=== PATIENT | female | born 1960 | race Caucasian/White ===

== ENCOUNTER → 2023-12-28 08:26 | Outpatient (REF) | payer BC, SELFPAY ==
[2023-12-28 10:24] LABS: Creatine Phosphokinase 366 U/L (30-135)
[2023-12-28 10:54] LABS: TSH 1.21 uIU/ml (0.47-4.68)
[2023-12-28 11:10] LABS: Glycohemoglobin (HgbA1c) 5.6 % (4.0-5.6)
[2023-12-30 12:50] LABS: 24 Hour Urine Total Volume Random mL; Urine Collection Length Random hr; Urine Free Kappa Light Chains 0.75 mg/L (0.00-32.90); Urine Free Lambda Light Chains <0.74 mg/L (0.00-3.79)
[2023-12-31 10:58] LABS: Albumin 4.56 g/dL (3.75-5.01); Alpha 1 Globulin 0.24 g/dL (0.19-0.46); Alpha 2 Globulin 0.63 g/dL (0.48-1.05); Free Kappa Light Chains,Quant 10.22 mg/L (3.30-19.40); Free Lambda Light Chains,Quant 6.61 mg/L (5.71-26.30); IgA 125 mg/dL (68-408); IgG 931 mg/dL (768-1632); IgM 104 mg/dL (35-263); Immunofixation Electrophoresis IFE Done; Kappa/Lambda Fr Light Ratio 1.55 (0.26-1.65)
[2023-12-31 22:11] LABS: Myelin Assoc Glycoprotein Ab <1000 TU (0-999)
== END ==
LOC: REG 08:26
PROVIDERS: ATTENDING PHYSICIAN Psychiatry & Neurology Neuromuscular Medicine; FAMILY PHYSICIAN Physician Assistant Medical
DX: G62.89 Other specified polyneuropathies (principal)
CPT/HCPCS: 36415; 82550; 82784; 83036; 83516; 83521; 84155; 84156; 84165; 84443; 86041; 86334; 86335

== ENCOUNTER → 2024-02-24 08:28 | Outpatient (REF) | payer BC, SELFPAY ==
[2024-02-24 12:49] LABS: Vitamin B12 > 1000 pg/ml (239-931)
[2024-02-26 21:56] LABS: Methylmalonic Acid 0.13 umol/L (0.00-0.40)
== END ==
LOC: REG 08:28
PROVIDERS: ATTENDING PHYSICIAN Student in an Organized Health Care Education/Training Program; FAMILY PHYSICIAN Physician Assistant Medical
DX: G12.20 Motor neuron disease, unspecified (principal)
CPT/HCPCS: 36415; 82607; 83921

== ENCOUNTER 2024-03-03 14:35 | Emergency (ER) | payer BC, SELFPAY ==
[2024-03-03 14:40] VITALS: BP 118/83
[2024-03-03 15:14] VITALS: BP 132/73
[2024-03-03 15:34] LABS: % Basophils 0.4 % (0-2); % Eosinophils 4.4 % (0-6); % Immature Granulocytes 0.6 % (0-0.5); % Lymphocytes 43.5 % (20.5-51.1); % Monocytes 10.3 % (1.7-9.3); % Neutrophils 40.8 % (42.2-75.2); Absolute Eosinophils 0.2 10^3/uL (0-0.7); Absolute Lymphocytes 2.2 10^3/uL (1.2-3.4); Absolute Monocytes 0.5 10^3/uL (0.1-0.6); Hematocrit 36.8 % (37.0-47.0); Hemoglobin 12.7 g/dL (12.0-16.0); Mean Corp Hgb Conc. 34.5 g/dL (33.0-37.0); Mean Corpuscular Hgb 32.3 pg (27.0-31.0); Mean Corpuscular Volume 93.6 fL (81.0-99.0); Mean Platelet Volume 11.7 fL (7.4-10.4); Nucleated Red Blood Cells % 0 %; Platelet Count 181 10^3/uL (130-400); Red Blood Cell Count 3.93 10^6/uL (4.20-5.40); Red Cell Dist. Width 11.8 % (11.5-14.5)
[2024-03-03 15:42] LABS: INR 1.02; PT 13.2 Sec (11.4-14.6)
[2024-03-03 15:43] LABS: APTT 28.2 Sec (23.4-35.0)
--- NOTE | 2024-03-03 15:44 | ED.GENMED ---
History of Present Illness
General
Chief Complaint: Breathing Problem
Source: patient and spouse
Exam Limitations: none
Time Seen by Provider: 03/03/24 15:10
Nursing documentation reviewed up to this point in time: agreed with
Travel History
Have you had any contact with someone who has COVID-19?: No
Do you have any symptoms of coronavirus? Fever > 100 degrees, chills, cough, shortness of breath, sore throat, loss of taste or smell, muscle aches, or headache?: No
History of Present Illness
History of Present Illness:
Patient to ED with complaints of lightheadedness, cough, sweating, palpitations. States she had similar symptoms 12 years ago. Found to have LLE DVT and bilateral PE's. SHe was placed on coumadin x 6 mos. No further issues. Reports recent
travel to [place] February 06-. States palpitaions started on the . SHe spoke with her radiation protection technician (Shola) and was placed on diltiazem. Has not noticed improvement in palpitations. Today reports lightheadedness, cough , sweating. No SOB,
CP/pressure. She was diagnosed with ALS in may. Recently started on Riluzole. Med was stopped for approx 4-5 days to see if palpitations would diminish. No change. Restarted back on Riluzole but at half the regular dose.
Past History
Past History
ED Past Medical History: Asthma, Other (pE, DVT, ALS) and Other (mitral valve prolapse)
ED Past Surgical History: Orthopedic and Other (Thyroidectomy)
Patient has exhibited threatening behavior?: No
Social History
Tobacco: Non-smoker
Alcohol: Occasional
Drug: None
Personal:
Living: with family
Employment: Employed
Family History
Family History: Hypertension; Negative Early CAD
Review of Systems
Review of Systems
Allergies reviewed?: Yes
All Other Systems: ROS reviewed and negative except as documented in HPI and ROS
Constitutional: Reports no symptoms
EENT: Reports no symptoms
Respiratory: Reports cough
Cardiac: Reports diaphoresis and palpitations
ABD/GI: Reports no symptoms
Musculoskeletal: Reports no symptoms
Skin: Reports no symptoms
Neurological: Reports dizzy
Psychiatric: Reports no symptoms
Phy Exam
General Physical Exam
General Presentation: well appearing and no apparent distress
General age: appears stated age
General Skin: warm and dry
General Habitus: normal
General Mental: alert
Cardiovascular Exam
Cardiovascular Exam: regular rate/rhythm and no edema
Pulmonary Exam
Pulmonary Exam: lungs clear and no respiratory distress
Musculoskeletal Exam
Musculoskeletal Exam: full ROM, no edema and neuro vasc intact
Skin Exam
Skin Exam: normal color, warm/dry and no rash
Psychiatric Exam
Psychiatric Exam: normal mood/affect
Scores
Heart Failure Risk
Heart Failure Risk Score: Not Applicable
PE Wells Score
Symptoms of DVT: No
No alternative diagnosis better explains the illness: No
Tachycardia with pulse > 100: No
Immobilization (>=3 days) or surgery within previous 4 weeks: Yes
Prior history of DVT or pulmonary embolism: Yes
Presence of hemoptysis: No
Presence of malignancy: No
Pulmonary Embolism Risk Score: 3.0
Probability of PE: Pt is moderate risk
PERC Rule Criteria
Age <50 years: No
HR <100 bpm: Yes
Room air oxygen sat >94%: Yes
History of DVT or PE: Yes
Recent trauma or surgery: No
Hemoptysis: No
Exogenous estrogen: No
Clinical signs suggestive of DVT: No
: No
Considered low risk for PE: Yes
PERC Score: 2
PE can be excluded by PERC: No
Course
Orders/Labs/Results
Orders:
Orders
03/03/24 14:47
EKG [Electrocardiogram (*1)] Urgent
Reason for Study: Shortness of Breath
EKG- Treatment ONCE
03/03/24 15:21
Complete Blood Count/With Diff Urgent
Comprehensive Metabolic Panel Urgent
D-Dimer Urgent
Comment: D-DIMER ADDED ON BY FLOOR 3:40PM 03-03-24
PTT Urgent
Prothrombin Time Urgent
Troponin I Urgent
03/03/24 15:41
Add On- LAB Urgent
Tests Added?: d-dimer
03/03/24 16:04
US Periph Venous LOWER Ext Hu Urgent
Comment:
Reason For Exam: HX dvt, PE symptoms
03/03/24 17:06
CT Chest Pe Study Urgent
Comment:
Reason For Exam: symptomatic. Hx PE
03/03/24 18:33
Apixaban [Eliquis] 10 mg PO NOW STA
Abnormal Lab Results
03/03/24
15:21
RBC 3.93 L 10^6/uL
(4.20-5.40)
Hct 36.8 L %
(37.0-47.0)
MCH 32.3 H pg
(27.0-31.0)
MPV 11.7 H fL
(7.4-10.4)
Immature Gran % 0.6 H %
(0-0.5)
Neutrophils % 40.8 L %
(42.2-75.2)
Monocytes % 10.3 H %
(1.7-9.3)
D-Dimer 0.56 H ug/mlFEU
(0.00-0.50)
Sodium 132 L mmol/L
(135-145)
Glucose 107 H mg/dl
(70-99)
AST 45 H U/L
(14-36)
03/03/24 15:21
03/03/24 15:21
Vital Signs
Initial and Last Documented VS:
Initial Vital Signs
Pulse Resp BP Pulse Ox
54 20 118/83 100
03/03/24 14:40 03/03/24 14:40 03/03/24 14:40 03/03/24 14:40
Last Documented Vital Signs
Pulse Resp BP Pulse Ox
65 18 121/78 98
03/03/24 18:53 03/03/24 18:53 03/03/24 18:53 03/03/24 18:53
*Radiology
Radiology exam reviewed: radiology read reviewed
*Pulse Oximetry
Patient hypoxic: no
*Critical Care Note
Total Time (30-74mins, 75-104mins- exclusive of procedures): Not Applicable
Update Note
Update Note:
Labs, US, CT results discussed with patient. Received call for radiologist regarding suspected RLL PE. VSS, no hypoxemia. No evidence of heart strain. Started on eliquis in dept. Dr. Rojas notified via tiger text. Patient started on eliquis
in dept. SHe is dishcarged home and will call in AM for pulm appointment. Given instructions on s/s to return to ED and she is agreeable to plan.
ED Attending Note
-
Portions of this chart may have been created with voice recognition software.� Occasional wrong word or��sound alike� substitutions may have occurred due to the inherent limitations of voice recognition software.
Discharge Plan
Departure
Patient Disposition: Home (Routine Discharge)
Date of Disposition: 03/03/24
Time of Disposition: 18:45
Patient with high blood pressure during this ER visit?: No
Condition: Good
Covid-19: Not Applicable
Discharge Problem:
Pulmonary embolism
Instructions: ED Low Risk PE
Prescriptions:
New
Eliquis DVT-PE Treat 30D Start 5 mg (74 tabs) tablets,dose pack
See Rx Instructions .ROUTE .COMPLEX Qty: 74 0RF
Rx Instructions:
orally per package directions
No Action
vitamin B complex 1 EACH tablet
1 tab PO DAILY
multivitamin Tablet
1 tab PO DAILY
riluzole 50 mg tablet
50 mg PO DAILY
diltiazem HCl 120 mg capsule,extended release 24hr
120 mg PO DAILY
Patient Comments:
03/03/2024: 1st dose today
omega 2-gtk-src-fish oil [Fish Oil] 1,200 (144-216) mg Capsule
2 cap PO DAILY
Cindi Protocol powder
1 dose PO DAILY
Patient Comments:
03/03/2024: Mix of three substances: Arginine, Alphaketogluterate and George aminobutyric acid (KEYANNA)
Referrals:
Seamus Bey MD [Active] - (Call tomorrow for your appointment.)
Natalya Sparks PA-C [Family Provider] -
Activity Restrictions/Additional Instructions:
Follow up with Dr. Rojas (pulmonology). Please call the office in the AM for your appointment. Return to the emergency department immediately for any difficulty breathing, chest pain.
Interventions
Interventions:
*Risk Screen - Suicide Last Done: 03/03/24 15:25
*General Assessment Last Done: 03/03/24 15:25
*Neglect/Abuse Screening Last Done: 03/03/24 15:25
ED- Fall Risk Assessment Last Done: 03/03/24 15:24
*ED COVID-19 Vaccine History Last Done: 03/03/24 14:40
*Nursing Disposition Last Done: 03/03/24 19:05
ED- Cardiac Assessment Last Done: 03/03/24 15:24
ED- Pulmonary Assessment Last Done: 03/03/24 15:24
ED-Peripheral Vascular Assessment Last Done: 03/03/24 15:24
ED-Skin Assessment Last Done: 03/03/24 15:24
Discharge Date and Time
Discharge Date/Time: 03/03/24 19:06
Print Language: GUINEAN
[2024-03-03 15:45] LABS: ALT (SGPT) 35 U/L (0-35); AST (SGOT) 45 U/L (14-36); Albumin 4.6 g/dl (3.5-5.0); Alkaline Phosphatase 64 U/L (38-126); Blood Urea Nitrogen 16 mg/dl (7-17); Calcium 9.7 mg/dl (8.4-10.2); Carbon Dioxide 25 mmol/L (22-30); Chloride 99 mmol/L (98-107); Glucose 107 mg/dl (70-99); Potassium 4.2 mmol/L (3.5-5.1); Sodium 132 mmol/L (135-145); Total Bilirubin 0.7 mg/dl (0.2-1.3); Total Protein 7.3 g/dl (6.3-8.2); eGFR > 60.00
[2024-03-03 15:56] LABS: Troponin I < 0.012 ng/ml
[2024-03-03 16:00] VITALS: BP 111/71
[2024-03-03 16:18] LABS: D-Dimer 0.56 ug/mlFEU (0.00-0.50)
[2024-03-03 17:00] VITALS: BP 105/68
[2024-03-03 18:05] VITALS: BP 121/78
[2024-03-03] MEDS: ELIQUIS 10 MG PO (18:37)
[2024-03-03 18:53] VITALS: BP 121/78
== END 2024-03-03 19:06 | disposition home or self-care (01) ==
LOC: EMR 14:35
PROVIDERS: EMERGENCY PHYSICIAN Emergency Medicine; FAMILY PHYSICIAN Physician Assistant Medical
DX: R42 Dizziness and giddiness (principal); R05.9 Cough, unspecified; R00.2 Palpitations; J45.909 Unspecified asthma, uncomplicated; I34.1 Nonrheumatic mitral (valve) prolapse; Z79.01 Long term (current) use of anticoagulants; Z82.49 Family history of ischemic heart disease and other diseases of the circulatory system; Z86.711 Personal history of pulmonary embolism; Z86.718 Personal history of other venous thrombosis and embolism
CPT/HCPCS: 99284; 71275; 80053; 84484; 85025; 85379; 85610; 85730; 93005; 93970; Q9967

== ENCOUNTER 2024-03-09 11:24 | Emergency (ER) | payer BC, SELFPAY ==
[2024-03-09 11:42] VITALS: BP 149/78
[2024-03-09 11:59] LABS: % Basophils 0.2 % (0-2); % Eosinophils 1.7 % (0-6); % Immature Granulocytes 0.2 % (0-0.5); % Lymphocytes 37.5 % (20.5-51.1); % Monocytes 7.9 % (1.7-9.3); % Neutrophils 52.5 % (42.2-75.2); Absolute Eosinophils 0.1 10^3/uL (0-0.7); Absolute Lymphocytes 2.2 10^3/uL (1.2-3.4); Absolute Monocytes 0.5 10^3/uL (0.1-0.6); Absolute Neutrophils 3.1 10^3/uL (1.4-6.5); Hematocrit 37.9 % (37.0-47.0); Mean Corp Hgb Conc. 34.3 g/dL (33.0-37.0); Mean Corpuscular Hgb 32.1 pg (27.0-31.0); Mean Corpuscular Volume 93.6 fL (81.0-99.0); Mean Platelet Volume 11.4 fL (7.4-10.4); Nucleated Red Blood Cells % 0 %; Platelet Count 176 10^3/uL (130-400); Red Blood Cell Count 4.05 10^6/uL (4.20-5.40); Red Cell Dist. Width 11.9 % (11.5-14.5); White Blood Cell Count 5.9 10^3/uL (4.8-10.8)
[2024-03-09 12:22] LABS: Troponin I < 0.012 ng/ml
[2024-03-09 12:39] LABS: ALT (SGPT) 100 U/L (0-35); AST (SGOT) 78 U/L (14-36); Albumin 4.6 g/dl (3.5-5.0); Alkaline Phosphatase 63 U/L (38-126); Blood Urea Nitrogen 15 mg/dl (7-17); Calcium 10.1 mg/dl (8.4-10.2); Carbon Dioxide 25 mmol/L (22-30); Chloride 104 mmol/L (98-107); Glucose 102 mg/dl (70-99); Potassium 4.1 mmol/L (3.5-5.1); Sodium 136 mmol/L (135-145); Total Bilirubin 0.5 mg/dl (0.2-1.3); Total Protein 7.2 g/dl (6.3-8.2); eGFR > 60.00
[2024-03-09 15:17] VITALS: BP 138/99
[2024-03-09 15:23] VITALS: BMI 23.1
--- NOTE | 2024-03-09 15:23 | ED.GENMED ---
History of Present Illness
General
Chief Complaint: Heart Rate Problem
Source: patient
Exam Limitations: none
Time Seen by Provider: 03/09/24 15:06
Nursing documentation reviewed up to this point in time: agreed with
Travel History
Have you had any contact with someone who has COVID-19?: No
Do you have any symptoms of coronavirus? Fever > 100 degrees, chills, cough, shortness of breath, sore throat, loss of taste or smell, muscle aches, or headache?: No
History of Present Illness
History of Present Illness:
Patient is a 63-year female with history of DVT PE 12 years ago recent diagnosis of ALS started on new medication (Riluzole ) 02/22/24 presents to the ER for evaluation of erratic heart rate sensation. She first noticed this in more but then
symptoms seem to have resolved. In January however she did wear a monitor for about a which was prescribed at her quality improvement consultant Dr. Jolley. She has not had the results yet. She reports since February 24 she describes having frequent episodes where she
feels her heart rate is erratic and her heart is irregular. She was seen by a doctor today and sent here to the ER. She does report that her pulse ox machine will at time read that her heart rate is as low as the 30s.
She does feel sometimes heaviness when this happens. She denies any actual nausea vomiting shortness of breath.
Because of this she was started on diltiazem by Dr. Jolley.
She does report she was seen here last week on March 03 for evaluation of DVT PE. She was diagnosed with right lower lobe PE and started on Eliquis with no evidence of heart strain.
Past History
Past History
ED Past Medical History: Asthma, Other (pE, DVT, ALS) and Other (mitral valve prolapse)
ED Past Surgical History: Orthopedic and Other (Thyroidectomy)
Patient has exhibited threatening behavior?: No
Social History
Tobacco: Non-smoker
Alcohol: Occasional
Drug: None
Personal:
Living: with family
Employment: Employed
Family History
Family History: Hypertension; Negative Early CAD
Review of Systems
Review of Systems
Allergies reviewed?: Yes
All Other Systems: ROS reviewed and negative except as documented in HPI and ROS
Constitutional: Reports no symptoms; Denies fever, fatigue or chills
EENT: Reports no symptoms
Respiratory: Reports no symptoms
Cardiac: Reports other ('erratic heart rate sensation ' )
ABD/GI: Reports no symptoms; Denies abdominal pain, nausea or vomiting
: Reports no symptoms
Musculoskeletal: Reports no symptoms
Hematologic/Lymphatic: Reports no symptoms
Psychiatric: Reports no symptoms
Phy Exam
General Physical Exam
General Presentation: well appearing
General age: appears stated age
General Skin: warm and dry
General Habitus: normal
General Mental: alert
General Hydration: appears well hydrated
Cardiovascular Exam
Cardiovascular Exam: regular rate/rhythm, no murmur and normal peripheral pulses
Pulmonary Exam
Pulmonary Exam: lungs clear and no respiratory distress
Neurological Exam
Neurological Exam: alert and oriented x3
Musculoskeletal Exam
Musculoskeletal Exam: full ROM
Skin Exam
Skin Exam: normal color and warm/dry
Psychiatric Exam
Psychiatric Exam: normal mood/affect
Course
Orders/Labs/Results
Orders:
Orders
03/09/24 11:47
Electrocardiogram (*1) Urgent
Reason for Study: Chest Pain
EKG- Treatment ONCE
03/09/24 11:53
Complete Blood Count/With Diff Urgent
Comprehensive Metabolic Panel Urgent
Troponin I Urgent
Abnormal Lab Results
03/09/24
11:53
RBC 4.05 L 10^6/uL
(4.20-5.40)
MCH 32.1 H pg
(27.0-31.0)
MPV 11.4 H fL
(7.4-10.4)
Glucose 102 H mg/dl
(70-99)
AST 78 H U/L
(14-36)
ALT 100 H U/L
(0-35)
03/09/24 11:53
03/09/24 11:53
Vital Signs
Initial and Last Documented VS:
Initial Vital Signs
Temp Pulse Resp BP Pulse Ox
98.2 F 72 16 149/78 100
03/09/24 11:42 03/09/24 11:42 03/09/24 11:42 03/09/24 11:42 03/09/24 11:42
Last Documented Vital Signs
Temp Pulse Resp BP Pulse Ox
98.2 F 67 14 119/74 99
03/09/24 11:42 03/09/24 17:15 03/09/24 17:15 03/09/24 17:00 03/09/24 17:15
MDM/Problems Addressed
MDM/Problems Addressed:
Patient is a 63-year-old female who presents to the ER complaining of erratic heart rate. She did have a Holter monitor done as an outpatient last week and was placed on diltiazem. She does not feel that diltiazem is working for her. She presents
to the ER awake alert no acute distress on the monitor she has had intermittent PVS BP stable HR 60s .
I spoke to cardiology Dr. Meeks who looked up the 7-day monitor from December 2023 which showed 0.6% burden of PVCs and 15 brief runs of SVT the longest was only 20 rare overall her symptoms did correspond to the PVCs and brief SVT.
Patient does not feel that Cardizem is working for her symptoms. As discussed with cardiology may stop Cardizem and start her on Toprol XL 25 mg daily she is also on riluzole for ALS I did have pharmacy to a check and there are reactions between
the 2. EKG reviewed with Dr. Meeks QTc reaading [id number]
In addition patient was here last week and treated for PE. I reviewed the scan which shows that there is a slight asymmetry of the posterior medial right lower lobe medial basilar pulmonary artery with faint decreased density within the artery and
a very subtle PE cannot be excluded. Patient was anticoagulated. She is supposed to follow-up with pulmonary but is not contact with them yet. I did review the importance of calling them tomorrow to make an appointment as well as calling
cardiology to schedule follow-up appointment for reevaluation of symptoms of PVCs and new medication.
*Pulse Oximetry
Patient hypoxic: no
*EKG
Interpreted by ED Provider?: Yes
Interpretation: abnormal
Heart Rate: 75
Rate: normal
Rhythm: sinus and PVC's
Ischemia: non-specific ST changes
*Critical Care Note
Total Time (30-74mins, 75-104mins- exclusive of procedures): Not Applicable
Data Reviewed
Review of Other/Old Records Reveals: Other (previous ED visit and previous radiology reports )
Source: patient
Patient Management
Discussion with other providers: Grinding And Spraying Supervisor (cardiology Dr Meeks )
ED Attending Note
-
Portions of this chart may have been created with voice recognition software.� Occasional wrong word or��sound alike� substitutions may have occurred due to the inherent limitations of voice recognition software.
Discharge Plan
Departure
Patient Disposition: Home (Routine Discharge)
Date of Disposition: 03/09/24
Time of Disposition: 17:27
Patient with high blood pressure during this ER visit?: Yes
Condition: Fair
Covid-19: Not Applicable
Discharge Problem:
PVC (premature ventricular contraction)
Instructions: Ventricular premature beats, BLOOD PRESSURE
Prescriptions:
New
metoprolol succinate [Toprol XL] 25 mg tablet extended release 24 hr
25 mg PO DAILY Qty: 30 0RF
No Action
vitamin B complex 1 EACH tablet
1 tab PO DAILY
multivitamin Tablet
1 tab PO DAILY
riluzole 50 mg tablet
50 mg PO DAILY
diltiazem HCl 120 mg capsule,extended release 24hr
120 mg PO DAILY
Patient Comments:
03/03/2024: 1st dose today
omega 0-hkd-dwi-fish oil [Fish Oil] 1,200 (144-216) mg Capsule
2 cap PO DAILY
Cindi Protocol powder
1 dose PO DAILY
Patient Comments:
03/03/2024: Mix of three substances: Arginine, Alphaketogluterate and George aminobutyric acid (KEYANNA)
Eliquis DVT-PE Treat 30D Start 5 mg (74 tabs) tablets,dose pack
See Rx Instructions .ROUTE .COMPLEX Qty: 74 0RF
Rx Instructions:
orally per package directions
Referrals:
Seamus Bey MD [Active] -
Natalya Sparks PA-C [Family Provider] -
Vini Jolley MD [Active] -
Activity Restrictions/Additional Instructions:
As discussed STOP Cardizem(diltiazem) start Toprol XL 25 mg daily starting tomorrow. Please call both your quality improvement consultant and asphalt mixer tomorrow to make an appointment in the next several days/1 week for reevaluation. Return if any worsening
of symptoms.
Interventions
Interventions:
*Risk Screen - Suicide Last Done: 03/09/24 15:32
*General Assessment Last Done: 03/09/24 15:32
*Neglect/Abuse Screening Last Done: 03/09/24 15:32
ED- Fall Risk Assessment Last Done: 03/09/24 15:32
*Nursing Disposition Last Done: 03/09/24 17:34
ED- Cardiac Assessment Last Done: 03/09/24 15:32
ED- Pulmonary Assessment Last Done: 03/09/24 15:32
Discharge Date and Time
Discharge Date/Time: 03/09/24 17:35
Print Language: VINCENTIAN
[2024-03-09 16:00] VITALS: BP 122/82
[2024-03-09 17:00] VITALS: BP 119/74
== END 2024-03-09 17:35 | disposition home or self-care (01) ==
LOC: EMR 11:24
PROVIDERS: Emergency Medicine; EMERGENCY PHYSICIAN Student in an Organized Health Care Education/Training Program; FAMILY PHYSICIAN Physician Assistant Medical
DX: I49.3 Ventricular premature depolarization (principal); R03.0 Elevated blood-pressure reading, without diagnosis of hypertension
CPT/HCPCS: 99284; 80053; 84484; 85025; 93005

== ENCOUNTER → 2024-03-10 08:13 | Outpatient (REF) | payer BC, SELFPAY | LOC: RCS 08:13 | PROVIDERS: ATTENDING PHYSICIAN Internal Medicine Cardiovascular Disease; FAMILY PHYSICIAN Physician Assistant Medical | DX: I34.0 Nonrheumatic mitral (valve) insufficiency (principal); I34.1 Nonrheumatic mitral (valve) prolapse | CPT/HCPCS: 93306 ==

== ENCOUNTER → 2024-03-16 12:27 | Outpatient (REF) | payer BC, SELFPAY ==
[2024-03-16 14:21] LABS: ALT (SGPT) 59 U/L (0-35); AST (SGOT) 40 U/L (14-36); Albumin 4.7 g/dl (3.5-5.0); Alkaline Phosphatase 72 U/L (38-126); Blood Urea Nitrogen 13 mg/dl (7-17); Calcium 9.8 mg/dl (8.4-10.2); Carbon Dioxide 29 mmol/L (22-30); Chloride 100 mmol/L (98-107); Glucose 109 mg/dl (70-99); Potassium 4.4 mmol/L (3.5-5.1); Sodium 137 mmol/L (135-145); Total Bilirubin 0.5 mg/dl (0.2-1.3); Total Protein 7.3 g/dl (6.3-8.2); eGFR > 60.00
== END ==
LOC: REG 12:27
PROVIDERS: ATTENDING PHYSICIAN Student in an Organized Health Care Education/Training Program; FAMILY PHYSICIAN Physician Assistant Medical
DX: G12.20 Motor neuron disease, unspecified (principal)
CPT/HCPCS: 36415; 80053

== ENCOUNTER → 2024-04-24 09:05 | Outpatient (REF) | payer BC, SELFPAY | LOC: RCS 09:05 | PROVIDERS: ATTENDING PHYSICIAN Internal Medicine Cardiovascular Disease; FAMILY PHYSICIAN Physician Assistant Medical | DX: R07.2 Precordial pain (principal) | CPT/HCPCS: 93017; 93350 ==

== ENCOUNTER → 2024-11-09 08:13 | Outpatient (REF) | payer BC, SELFPAY | LOC: RCS 08:13 | PROVIDERS: ATTENDING PHYSICIAN Internal Medicine Cardiovascular Disease; FAMILY PHYSICIAN Internal Medicine | DX: R00.2 Palpitations (principal) | CPT/HCPCS: 93306 ==